=== PATIENT | female | born 1980 | race Hispanic/Latino ===

== ENCOUNTER 2019-03-07 21:33 | Emergency (ER) | payer MEDICAID, OTHER ==
[~2019-03-07 21:33] MED LIST: FERR-82 PO; INSU300I SQ; INSU500V SQ; PREN-154 PO
[2019-03-07] MEDS ORDERED: TETANUS/DIPHTHERIA TOXOID [ADULT] 0.5 ML VIAL IM ONE (21:59)
== END 2019-03-07 23:13 | disposition home or self-care (01) ==
LOC: EDH 21:33
DX: S71.131A Puncture wound without foreign body, right thigh, initial encounter (principal); E11.9 Type 2 diabetes mellitus without complications; W54.0XXA Bitten by dog, initial encounter; Y93.89 Activity, other specified; Y92.89 Other specified places as the place of occurrence of the external cause; Y99.8 Other external cause status
CPT/HCPCS: 90471; 90714

== ENCOUNTER 2020-03-31 03:43 | Emergency (ER) | payer MEDICAID ==
[2020-03-31] MEDS ORDERED: PROMETHAZINE HCL 25 MG/ML 1ML AMPULE IM ONE (03:44)
[2020-03-31] MEDS ORDERED: FAMOTIDINE 20MG TAB 20 MG TAB ONE (04:10)
[2020-03-31] MEDS ORDERED: PANTOPRAZOLE SODIUM 40 MG TABLET.DR ONE (04:10)
[2020-03-31] MEDS ORDERED: ONDANSETRON ODT 4 MG TAB ONE (04:10)
== END 2020-03-31 04:35 | disposition home or self-care (01) ==
LOC: EDH 03:43
DX: K29.00 Acute gastritis without bleeding (principal); R11.2 Nausea with vomiting, unspecified; E11.9 Type 2 diabetes mellitus without complications; Z98.890 Other specified postprocedural states; Z72.0 Tobacco use
CPT/HCPCS: 96372; 99284; J2550

== ENCOUNTER 2020-04-04 12:32 | Emergency (ER) | payer MEDICAID ==
[~2020-04-04 12:32] MED LIST changes: +ACET1TAB12 PO; -FERR-82 PO; -INSU300I SQ; -INSU500V SQ; +METF-444 PO; -PREN-154 PO
[2020-04-04 13:32] LABS: BASOPHILS % (AUTO) 0.2 % (0.0-5.0); EOSINOPHILS % (AUTO) 1.1 % (0.0-8.0); HEMATOCRIT 35.8 % (36-48); LYMPHOCYTES % (AUTO) 20.6 % (21.0-51.0); MEAN CORPUSCULAR HEMOGLOBIN 27.7 pg (27.0-33.0); MEAN CORPUSCULAR HGB CONC 31.8 g/dL (32.0-36.0); MEAN CORPUSCULAR VOLUME 86.9 fL (79-99); MONOCYTES % (AUTO) 3.7 % (3.0-13.0); NEUTROPHILS % (AUTO) 73.8 % (40.0-77.0); PLATELET COUNT (AUTO) 214 K/uL (130-400); RED BLOOD CELL COUNT(AUTO) 4.12 MIL/uL (4.00-5.50); RED CELL DISTRIBUTION WIDTH 13.5 % (11.0-15.5); WHITE BLOOD COUNT (AUTO) 8.3 K/uL (4.8-10.8)
[2020-04-04 13:37] LABS: APPEARANCE,URINE Cloudy (CLEAR); BILIRUBIN,URINE Small (NEGATIVE); COLOR,URINE Dark Yellow (YELLOW); GLUCOSE, URINE (UA) Negative (NEGATIVE); KETONES,URINE Trace mg/dL (NEGATIVE); LEUKOCYTE ESTERASE ,URINE Moderate (NEGATIVE); NITRATE,URINE Negative (NEGATIVE); OCCULT BLOOD,URINE Moderate (NEGATIVE); PROTEIN,URINE 300 mg/dL (NEGATIVE)
[2020-04-04 13:41] LABS: HCG,QUAL RESULT NEGATIVE (NEGATIVE)
[2020-04-04] MEDS ORDERED: ONDANSETRON HCL 4 MG/2 ML VIAL ONE (13:44)
[2020-04-04] MEDS ORDERED: KETOROLAC TROMETHAMINE 30MG/ML ONE (13:44)
[2020-04-04 13:52] LABS: CREATININE 1.2 mg/dL (0.5-1.5); POTASSIUM 4.1 mmol/L (3.5-5.1)
[2020-04-04 13:56] LABS: ALBUMIN 3.7 g/dL (3.5-5.0); BACTERIA,URINE Moderate /HPF (None Seen); BILIRUBIN,TOTAL 0.8 mg/dL (0.2-1.0); HYALINE CASTS, URINE 0-1 /LPF (0-1 /LPF); RBC,URINE 0-1 /HPF (0-1); TOTAL PROTEIN, SERUM 8.2 g/dL (6.0-8.3)
== END 2020-04-04 14:44 | disposition home or self-care (01) ==
LOC: EDH 12:32
DX: K80.80 Other cholelithiasis without obstruction (principal); K80.50 Calculus of bile duct without cholangitis or cholecystitis without obstruction; E11.9 Type 2 diabetes mellitus without complications; Z98.890 Other specified postprocedural states; Z72.0 Tobacco use
CPT/HCPCS: 36415; 76705; 80053; 81001; 81025; 83690; 85025; 87088; 96374; 96375; 99284; J1885; J2405

== ENCOUNTER 2022-12-26 20:49 | Emergency (ER) | payer MEDICAID ==
[~2022-12-26] VITALS: Ht 165.1 cm; Wt 73.9 kg
[2022-12-26 22:20] VITALS: BP 148/80
[2022-12-26] MEDS ORDERED: KETOROLAC 60 MG VIAL (30MG/ML) IM ONE (22:30)
== END 2022-12-26 23:14 | disposition home or self-care (01) ==
LOC: EDH 20:49
DX: S89.82XA Other specified injuries of left lower leg, initial encounter (principal); Z90.49 Acquired absence of other specified parts of digestive tract; Z98.890 Other specified postprocedural states; Z79.84 Long term (current) use of oral hypoglycemic drugs; X58.XXXA Exposure to other specified factors, initial encounter; Y93.89 Activity, other specified; Y92.89 Other specified places as the place of occurrence of the external cause; Y99.8 Other external cause status; E11.9 Type 2 diabetes mellitus without complications
CPT/HCPCS: 99283; 73562; 96372; J1885